=== PATIENT | male | born 1995 | race Caucasian/White ===

== ENCOUNTER 2021-02-26 22:06 | Emergency (ER) | payer SELFPAY ==
[2021-02-26 22:18] VITALS: PULSE 84; RESP 18; TEMP 36.8; O2SAT 96; BMI 27.7
--- NOTE | 2021-02-26 22:28 | ED_ITS ---
HPI - Wound/Laceration General: Chief Complaint: Wound/Laceration Stated Complaint: Injury Rt handRing finger needs stiches Time Seen by Provider: 02/26/21 22:27 History of Present Illness: HPI narrative: 25-year-old male patient comes in with injury to the right hand. Patient reported last night he was arguing with some family members and slipped and fell cutting his hand on a mailbox that was sitting on the floor in the house. Patient has a 3 cm laceration to the distal pad of the right ring finger. Patient delayed care to coming in due to other activities today. Wound is gaping about 8 mm. Review of Systems General: Reports: 10 or more systems reviewed and unremarkable except in HPI and below Musc: Reports: other (Laceration fourth finger right hand.) Physical Exam Const: COMMON NORMALS: no acute distress and patient oriented x3 GENERAL APPEARANCE: cooperative HENMT: COMMON NORMALS: normocephalic and Normal external nose present HEAD & SCALP: normal to inspection and normocephalic NOSE: Normal external nose present Eye: GENERAL EYE: appearance normal, both eyes and all related structures Neck/C-Spine: COMMON NORMALS: full ROM Chest: COMMONS NORMALS: normal inspection of the chest Resp: COMMON NORMALS: normal respiratory effort EFFORT & INSPECTION: Yes able to speak in complete sentences Cardio: COMMON NORMALS: regular rate and regular rhythm RATE: regular rate RHYTHM: regular rhythm GI: COMMON NORMALS: non-tender Back/Pelvis: COMMON NORMALS: thoracic and lumbar spine normal to inspection Extremity: COMMON NORMALS: normal to inspection Neuro: COMMON NORMALS: patient oriented x3 and moves all extremities Psych: COMMON NORMALS: mental status grossly normal and cooperative Skin: NARRATIVE SKIN EXAM: Gaping laceration to the right hand ring finger. Patient has normal range of motion of the finger and prompt capillary refill. Procedures Laceration Laceration 1: Site: hand (Fourth digit right hand) Side (If applicable): right Size (cm): 3 Description: linear Depth: simple, single layer Local Anesthetic: lidocaine 1% Amount of anesthesia used (mL): 2 Pre-repair: wound explored, irrigated extensively and extensive d ebridement Skin layer closed with: nylon Size (cm): 4-0 Number of sutures: 5 Course Vital Signs: Vital signs: Vital Signs Temperature 98.1 F 02/26/21 22:48 Pulse Rate 78 02/26/21 22:48 Respiratory Rate 16 02/26/21 22:48 Blood Pressure 115/69 02/26/21 22:48 Pulse Oximetry 94 02/26/21 22:48 MDM - Wound/Laceration MDM Narrative: Medical decision making narrative: 25-year-old male patient comes in today with complaints of injury to the right hand ring finger. On exam we note a 3 cm laceration to the distal right ring finger that is gaping. Patient has delayed care for wound. Differential diagnosis includes but not limited to foreign body, fracture, wound infection, laceration. Wound was debrided to new tissue, then cleaned thoroughly and the wound was approximated with sutures closing the significant gape in the wound. Patient will be started on Augmentin due to the delay of wound closure. Tetanus was updated. Patient was recommended to follow-up with primary care in 1 week for suture out. Courtney ent reported understanding. Discharge Plan Discharge Patient Disposition: Home Clinical Impression: Finger laceration Qualifiers: Encounter type: initial encounter Finger: ring finger Damage to nail status: without damage Foreign body presence: without foreign body Laterality: right Qualified Code(s): S61.214A - Laceration without foreign body of right ring finger without damage to nail, initial encounter Condition: Stable Prescriptions: New Augmentin 875-125 mg tablet 1 tab PO BID Qty: 14 RF: 0 Discharge Orders: Discharge ED (Routine); Ordered 02/26/21 Ordered By: Rich Ruano Discharge Diet: Usual diet Discharge Activity: Increase activity as tolerated Patient Instructions: Suture Care (ED), Opioid Safety Activity Restrictions/Additional Instructions: Keep wound clean and dry. Is very important for next 48 hours keep the wound as dry as possible. After that you can lightly wash the wound with some mild soap and water. And apply antibiotic ointment. Take antibiotic by mouth as directed. Sutures need to come out in 7 to 10 days. Follow-up with primary care as needed. Return to the ER for new concerns. Coding Level of Care Code ED Regulatory Internship for Bryson Hamilton
[2021-02-26 22:48] VITALS: BP 115/69; PULSE 78; RESP 16; TEMP 36.7; O2SAT 94
[2021-02-26] MEDS: tetanus-dipt-pertussis 0.5 mL SDV IM (23:12)
[2021-02-26] MEDS: amoxicillin-clav 875-125 mg Tablet 1 TAB PO (23:12)
[2021-02-26 23:18] VITALS: RESP 16
== END 2021-02-26 23:19 | disposition home or self-care (01) ==
PROVIDERS: Emergency Provider Nurse Practitioner Family
DX: S61.214A Laceration without foreign body of right ring finger without damage to nail, initial encounter (principal); W01.0XXA Fall on same level from slipping, tripping and stumbling without subsequent striking against object, initial encounter; Z23 Encounter for immunization
CPT/HCPCS: 12002; 90715; 99283

== ENCOUNTER 2022-03-21 10:04 | Outpatient (CLI) | payer MEDICAID, SELFPAY ==
--- NOTE | 2022-03-21 10:10 | XR_ITS ---
WS: [id number] Exam: XR thoracic spine 3V* [id number] Date/Time of Exam: 03/21/2022 10:19 AM Reason For Exam: M54.6 - Pain in thoracic spine No fracture or dislocation. No significant scoliosis. Normal paraspinal soft tissues. XR/XR thoracic spine 3V* [id number] IMPRESSION: 1. Negative thoracic spine study.
== END 2022-03-21 10:05 | disposition home or self-care (01) ==
LOC: RAD 10:07
PROVIDERS: PCP Nurse Practitioner Family; Visit Provider Nurse Practitioner Family
DX: M54.6 Pain in thoracic spine (principal); G89.29 Other chronic pain
CPT/HCPCS: 72072

== ENCOUNTER → 2022-09-11 11:24 | Outpatient (BNVA) | payer MEDICAID, SELFPAY | PROVIDERS: PCP Nurse Practitioner Family; Visit Provider Nurse Practitioner Psychiatric/Mental Health | DX: Z03.89 Encounter for observation for other suspected diseases and conditions ruled out (principal); Z79.899 Other long term (current) drug therapy | CPT/HCPCS: 80053; 80061; 83036 ==

== ENCOUNTER → 2022-11-22 14:27 | Outpatient (BNVA) | payer MEDICAID, OTHER, SELFPAY | PROVIDERS: PCP Nurse Practitioner Family; Visit Provider Nurse Practitioner Psychiatric/Mental Health | DX: F20.0 Paranoid schizophrenia (principal); F12.90 Cannabis use, unspecified, uncomplicated; F17.210 Nicotine dependence, cigarettes, uncomplicated; Z03.89 Encounter for observation for other suspected diseases and conditions ruled out | CPT/HCPCS: 80307 ==

== ENCOUNTER 2023-03-27 10:59 | Outpatient (CLI) | payer MEDICAID, SELFPAY ==
--- NOTE | 2023-03-27 11:08 | XR_ITS ---
WS: [id number] EXAMINATION: XR knee LT 3V* [id number] REASON FOR EXAM: KNEE PAIN, LEFT COMPARISON: None available. ORDER DATE: 03/27/2023 11:10 AM FINDINGS: There is no sign of any acute osseous or articular abnormality. There are no specific soft tissue abn ormalities. IMPRESSION: No acute change.
== END 2023-03-27 11:00 | disposition home or self-care (01) ==
LOC: RAD 11:03
PROVIDERS: PCP Family Medicine; Visit Provider Family Medicine
DX: M25.562 Pain in left knee (principal)
CPT/HCPCS: 73562

== ENCOUNTER → 2023-12-05 11:36 | Outpatient (BNVA) | payer MEDICAID, SELFPAY | PROVIDERS: PCP Family Medicine; Visit Provider Nurse Practitioner Psychiatric/Mental Health | DX: Z79.899 Other long term (current) drug therapy (principal); F20.0 Paranoid schizophrenia; F12.90 Cannabis use, unspecified, uncomplicated; F17.210 Nicotine dependence, cigarettes, uncomplicated | CPT/HCPCS: 80053; 80061; 83036 ==

== ENCOUNTER → 2025-01-27 14:13 | Outpatient (BNVA) | payer MEDICARE, MEDICAID, OTHER, SELFPAY | PROVIDERS: PCP Family Medicine; Visit Provider Nurse Practitioner Psychiatric/Mental Health | DX: Z79.899 Other long term (current) drug therapy (principal) | CPT/HCPCS: 80061; 83036 ==